=== PATIENT | female | born 1995 | race Caucasian/White ===

== ENCOUNTER → 2018-02-28 | Outpatient (CLI) | payer BC ==
--- NOTE | 2018-02-28 12:01 | RADIOLOGY IMAGING REPORT ---
[facility] PATIENT NAME: Kizzy Tillman : 1995 MR: [id number] V: [id number] EXAM DATE: ORDERING PHYSICIAN: ROSA CARDONA TECHNOLOGIST: Location: [facility] [place] Patient: Kizzy Tillman : 1995 Visit/Account:[id number] Date of Sevice: 02/28/2018 Exam type: CHEST PA AND LAT History: Screening for overseas school application Comparison: None. Findings: The lungs are free of acute effusions, infiltrates or edema. There is no evidence of cavitary lesion s. Cardiac silhouette is normal in size. The trachea is midline. Visualized bones are grossly unre markable. IMPRESSION: 1. No acute cardiopulmonary process is seen. Specifically no chest radiograph evidence of active tuberculosis Report Dictated By: Shefali Shaffer MD at 02/28/2018 11:54 AM Report E-Signed By: Shefali Shaffer MD at 02/28/2018 11:55 AM WSN:[id number]
== END ==
LOC: RAD 11:23
PROVIDERS: ATTEND Pediatrics Adolescent Medicine
DX: Z02.89 Encounter for other administrative examinations (principal)
CPT/HCPCS: 71046